=== PATIENT | female | born 1945 | race Caucasian/White ===

== ENCOUNTER 2018-04-01 07:52 | Day surgery (SDC) | payer MEDICARE, OTHER ==
[~2018-04-01 07:52] MED LIST: Cefuroxime 10 MG/ML SYRINGE EYELF SCH; Lidocaine 1% PF 2 ML SDV INJECT SCH; Pilocarpine 4% Ophth Soln 15 ML Bot EYELF SCH
[2018-04-01] MEDS: Ofloxacin 0.3% Ophth Soln 5 ML Bottle EYELF SCH ×3 (09:03→11:06)
[2018-04-01] MEDS: Brimonidine 0.2% Ophth Soln 5 ML Bottle EYELF SCH ×3 (09:11→11:06)
--- NOTE | 2018-04-01 09:15 | PCM.PREANE ---
Preanesthetic Assessment - Anesthesia/Transfusion/Family Hx Anesthesia History: Prior Anesthesia Without Reaction Family History of Anesthesia Reaction: No Transfusion History: No Prior Transfusion(s) - Review of Systems General: No Symptoms Pulmonary: No Symptoms, Cough (smoler) Cardiovascular: No Symptoms Gastrointestinal: No Symptoms Neurological: No Symptoms Other: Reports: None - Physical Assessment NPO Status Date: 03/31/18 NPO Status Time: 22:00 Pulse: 97 O2 Sat by Pulse Oximetry: 94 Respiratory Rate: 16 Blood Pressure: 131/64 Temperature: 36.7 C Vital Signs: Last Vital Signs Temp 36.7 C 04/01/18 08:50 Pulse 97 04/01/18 08:50 Resp 16 04/01/18 08:50 BP 131/64 04/01/18 08:50 Pulse Ox 94 L 04/01/18 08:50 Height: 1.65 m Weight: 50.802 kg ASA Class: 2 Mental Status: Alert & Oriented x3 Airway Class: Mallampati = 2 Dentition: Reports: Missing Tooth/Teeth, Caries Thyro-Mental Finger Breadths: 3 Mouth Opening Finger Breadths: 2 ROM/Head Extension: Full Lungs: Decreased Breath Sounds, Wheezing Cardiovascular: Regular Rate, Regular Rhythm - Allergies Allergies/Adverse Reactions: Allergies Allergy/AdvReac Type Severity Reaction Status Date / Time Sulfa (Sulfonamide Allergy Cannot Verified 03/31/18 10:23 Antibiotics) Remember Tetanus Vaccines and Toxoid Allergy Cannot Verified 03/31/18 10:23 Remember - Blood Blood Available: No Product(s) Available: None - Anesthesia Plan Pre-Op Medication Ordered: None - Acknowledgements Anesthesia Type Planned: MAC Pt an Appropriate Candidate for the Planned Anesthesia: Yes Alternatives and Risks of Anesthesia Discussed w Pt/Guardian: Yes Pt/Guardian Understands and Agrees with Anesthesia Plan: Yes PreAnesthesia Questionnaire - HOME MEDS Home Medications: Home Meds Aspirin [Adult Aspirin] 81 mg PO DAILY 03/31/18 [History] Lifitegrast [Xiidra] 1 drop EYEBOTH ASDIRECTED 03/31/18 [History] Olmesartan [Benicar] 20 mg PO DAILY 03/31/18 [History] Sertraline [Zoloft] 100 mg PO DAILY 03/31/18 [History] amLODIPine Besylate [Norvasc] 2.5 mg PO DAILY 03/31/18 [History] buPROPion [Wellbutrin SR] 150 mg PO DAILY 03/31/18 [History] hydrOXYzine HCl [hydrOXYzine] 25 mg PO DAILY 03/31/18 [History] - CURRENT (IN HOUSE) MEDS Current Meds: Current Medications Brimonidine Tartrate (Alphagan 0.2% Ophth Soln) 0 ml EYELF ASDIRECTED TAE Stop: 04/01/18 18:00 Cefuroxime Sodium (Zinacef) 0 mg EYELF ASDIRECTED TAE Stop: 04/01/18 18:00 Lidocaine HCl (Xylocaine-Mpf 1%) 0 ml INJECT ASDIRECTED TAE Stop: 04/01/18 18:00 Ofloxacin (Ocuflox 0.3% Ophth Soln) 0 ml EYELF ASDIRECTED TAE Stop: 04/01/18 18:00 Last Admin: 04/01/18 09:03 Dose: 1 drop Phenylephrine HCl (Alexx-Synephrine 2.5% Ophth Soln) 0 ml EYELF ASDIRECTED TAE Stop: 04/01/18 18:00 Pilocarpine HCl (Pilocar 4% Ophth Soln) 0 ml EYELF ASDIRECTED TAE Stop: 04/01/18 18:00 Tetracaine HCl (Tetracaine 0.5% Steri-Unit Cheryle) 0 ml EYELF ASDIRECTED TAE Stop: 04/01/18 18:00 Tropicamide (Mydriacyl 1% Ophth Soln) 0 ml EYELF ASDIRECTED TAE Stop: 04/01/18 18:00
[2018-04-01] MEDS: Phenylephrine 2.5% Ophth Soln 2 ML Bot EYELF SCH ×8 (09:20→10:40)
[2018-04-01] MEDS: Tropicamide 1% Ophth Soln 15 ML Bottle EYELF SCH ×4 (09:28→10:28)
[2018-04-01] MEDS: Tetracaine HCl/PF 0.5% 4 ML Bottle EYELF SCH ×2 (10:34→10:55)
--- NOTE | 2018-04-01 11:09 | PCM48HPAN ---
Post Anesthesia Note - EVALUATION WITHIN 48HRS OF ANESTHETIC Vital Signs in Normal Range: Yes Patient Participated in Evaluation: Yes Respiratory Function Stable: Yes Airway Patent: Yes Cardiovascular Function Stable: Yes Hydration Status Stable: Yes Pain Control Satisfactory: Yes Nausea and Vomiting Control Satisfactory: Yes Mental Status Recovered: Yes Pulse Rate: 92 SaO2: 99 Resp Rate: 16 Temperature: 36.7 C Blood Pressure: 125/69
== END 2018-04-01 11:16 | disposition home or self-care (01) ==
LOC: JD.SDS 07:52
PROVIDERS: ATTEND Ophthalmology
DX: H25.813 Combined forms of age-related cataract, bilateral (principal); H16.103 Unspecified superficial keratitis, bilateral; H16.223 Keratoconjunctivitis sicca, not specified as Sjogren's, bilateral; H02.834 Dermatochalasis of left upper eyelid; H02.831 Dermatochalasis of right upper eyelid; I10 Essential (primary) hypertension; F32.9 Major depressive disorder, single episode, unspecified; F41.9 Anxiety disorder, unspecified; F17.200 Nicotine dependence, unspecified, uncomplicated; Z79.82 Long term (current) use of aspirin; Z79.899 Other long term (current) drug therapy; Z88.2 Allergy status to sulfonamides; Z88.7 Allergy status to serum and vaccine
CPT/HCPCS: 66984; C1780; J0697; A9270-GY; J2001

== ENCOUNTER 2018-05-04 08:10 | Day surgery (SDC) | payer MEDICARE, OTHER ==
[~2018-05-04 08:10] MED LIST changes: -Cefuroxime 10 MG/ML SYRINGE EYELF SCH; -Pilocarpine 4% Ophth Soln 15 ML Bot EYELF SCH
[2018-05-04] MEDS: Ofloxacin 0.3% Ophth Soln 5 ML Bottle EYERT SCH ×4 (09:08→11:00)
[2018-05-04] MEDS: Brimonidine 0.2% Ophth Soln 5 ML Bottle EYERT SCH ×4 (09:14→11:00)
--- NOTE | 2018-05-04 09:14 | PCM.PREANE ---
Preanesthetic Assessment - Anesthesia/Transfusion/Family Hx Anesthesia History: Prior Anesthesia Without Reaction Family History of Anesthesia Reaction: No Transfusion History: No Prior Transfusion(s) - Review of Systems General: No Symptoms Pulmonary: No Symptoms Cardiovascular: Dyspnea on Exertion Gastrointestinal: No Symptoms Neurological: No Symptoms Other: Reports: None - Physical Assessment NPO Status Date: 05/03/18 NPO Status Time: 22:00 Pulse: 84 O2 Sat by Pulse Oximetry: 91 Respiratory Rate: 16 Blood Pressure: 137/69 Temperature: 36.7 C Vital Signs: Last Vital Signs Temp 36.7 C 05/04/18 08:45 Pulse 84 05/04/18 08:45 Resp 16 05/04/18 08:45 BP 137/69 05/04/18 08:45 Pulse Ox 91 L 05/04/18 08:45 Height: 1.63 m Weight: 50.802 kg ASA Class: 2 Mental Status: Alert & Oriented x3 Airway Class: Mallampati = 2 Dentition: Reports: Missing Tooth/Teeth Thyro-Mental Finger Breadths: 3 Mouth Opening Finger Breadths: 2 ROM/Head Extension: Full Lungs: Clear to Auscultation, Normal Respiratory Effort Cardiovascular: Regular Rate, Regular Rhythm - Allergies Allergies/Adverse Reactions: Allergies Allergy/AdvReac Type Severity Reaction Status Date / Time Sulfa (Sulfonamide Allergy Cannot Verified 05/03/18 13:00 Antibiotics) Remember Tetanus Vaccines and Toxoid Allergy Cannot Verified 05/03/18 13:00 Remember - Blood Blood Available: No Product(s) Available: None - Anesthesia Plan Pre-Op Medication Ordered: None - Acknowledgements Anesthesia Type Planned: MAC Pt an Appropriate Candidate for the Planned Anesthesia: Yes Alternatives and Risks of Anesthesia Discussed w Pt/Guardian: Yes Pt/Guardian Understands and Agrees with Anesthesia Plan: Yes PreAnesthesia Questionnaire - HOME MEDS Home Medications: Home Meds Aspirin [Adult Aspirin] 81 mg PO DAILY 03/31/18 [History] Lifitegrast [Xiidra] 1 drop EYEBOTH ASDIRECTED 03/31/18 [History] Olmesartan [Benicar] 20 mg PO DAILY 03/31/18 [History] Sertraline [Zoloft] 100 mg PO DAILY 03/31/18 [History] amLODIPine Besylate [Norvasc] 2.5 mg PO DAILY 03/31/18 [History] buPROPion [Wellbutrin SR] 150 mg PO DAILY 03/31/18 [History] hydrOXYzine HCl [hydrOXYzine] 25 mg PO DAILY 03/31/18 [History] - CURRENT (IN HOUSE) MEDS Current Meds: Current Medications Brimonidine Tartrate (Alphagan 0.2% Ophth Soln) 0 ml EYERT ASDIRECTED TAE Stop: 05/04/18 18:00 Cefuroxime Sodium (Zinacef) 0 mg EYERT ASDIRECTED TAE Stop: 05/04/18 18:00 Lidocaine HCl (Xylocaine-Mpf 1%) 0 ml INJECT ASDIRECTED TAE Stop: 05/04/18 18:00 Ofloxacin (Ocuflox 0.3% Ophth Soln) 0 ml EYERT ASDIRECTED TAE Stop: 05/04/18 18:00 Phenylephrine HCl (Alexx-Synephrine 2.5% Ophth Soln) 0 ml EYERT ASDIRECTED TAE Stop: 05/04/18 18:00 Pilocarpine HCl (Pilocar 4% Ophth Soln) 0 ml EYERT ASDIRECTED TAE Stop: 05/04/18 18:00 Tetracaine HCl (Tetracaine 0.5% Steri-Unit Cheryle) 0 ml EYERT ASDIRECTED TAE Stop: 05/04/18 18:00 Tropicamide (Mydriacyl 1% Ophth Soln) 0 ml EYERT ASDIRECTED TAE Stop: 05/04/18 18:00
[2018-05-04] MEDS: Phenylephrine 2.5% Ophth Soln 2 ML Bot EYERT SCH ×5 (09:20→10:21)
[2018-05-04] MEDS: Tropicamide 1% Ophth Soln 15 ML Bottle EYERT SCH ×4 (09:25→10:06)
[2018-05-04] MEDS ORDERED: Midazolam 1 MG/ML 2 ML SDV ONE (09:36)
[2018-05-04] MEDS ORDERED: Propofol 200 MG/20 ML SDV ONE (09:36)
[2018-05-04] MEDS ORDERED: Lidocaine 1%/Sod Bicarbonate in NS 8.4% 1 ML Syringe IDERM PRN (10:00)
[2018-05-04] MEDS ORDERED: Sodium Chloride 0.9% 10 ML Syringe FLUSH PRN (10:00)
[2018-05-04] MEDS ORDERED: Lactated Ringers 1,000 ML IV SCH (10:00)
[2018-05-04] MEDS: Tetracaine HCl/PF 0.5% 4 ML Bottle EYERT SCH ×2 (10:09→10:29)
[2018-05-04] MEDS: Cefuroxime 10 MG/ML SYRINGE EYERT SCH ×2 (10:42→10:55)
[2018-05-04] MEDS: Pilocarpine 4% Ophth Soln 15 ML Bot EYERT SCH ×2 (10:43→11:00)
--- NOTE | 2018-05-04 11:06 | PCM48HPAN ---
Post Anesthesia Note - EVALUATION WITHIN 48HRS OF ANESTHETIC Vital Signs in Normal Range: Yes Patient Participated in Evaluation: Yes Respiratory Function Stable: Yes Airway Patent: Yes Cardiovascular Function Stable: Yes Hydration Status Stable: Yes Pain Control Satisfactory: Yes Nausea and Vomiting Control Satisfactory: Yes Mental Status Recovered: Yes Pulse Rate: 84 Resp Rate: 16 Temperature: 36.7 C Blood Pressure: 137/69 - COMMENTS/OBSERVATIONS Free Text/Narrative:: no anesthesia complications noted
== END 2018-05-04 11:14 | disposition home or self-care (01) ==
LOC: JD.SDS 08:10
PROVIDERS: ATTEND Ophthalmology
DX: H25.811 Combined forms of age-related cataract, right eye (principal); H02.831 Dermatochalasis of right upper eyelid; H02.834 Dermatochalasis of left upper eyelid; F41.9 Anxiety disorder, unspecified; F32.9 Major depressive disorder, single episode, unspecified; I10 Essential (primary) hypertension; Z79.82 Long term (current) use of aspirin; Z79.899 Other long term (current) drug therapy; Z88.2 Allergy status to sulfonamides; Z88.7 Allergy status to serum and vaccine; Z98.42 Cataract extraction status, left eye; Z96.1 Presence of intraocular lens
CPT/HCPCS: 66984; C1780; J0697; J2250; J2704; J7120; A9270-GY; J2001

== ENCOUNTER 2022-12-23 12:14 | Observation (INO) | payer MEDICARE, BC ==
[2022-12-23] MEDS ORDERED: Sodium Chloride 0.9% 1,000 ML IV ONE ×2 (12:35→14:35)
[2022-12-23] MEDS ORDERED: oxyCODONE 5 MG Tab PO PRN (16:28)
[2022-12-23] MEDS ORDERED: Temazepam 7.5 MG Cap PO PRN (16:28)
[2022-12-23] MEDS ORDERED: Acetaminophen 325 MG Tab PO PRN (16:28)
[2022-12-23] MEDS ORDERED: Albuterol/Ipratropium 3.0-0.5 MG/3 ML Neb Soln NEB PRN (16:28)
[2022-12-23] MEDS: Heparin Sodium 5,000 Units/ML Vial SUBCUT SCH (17:54)
[2022-12-23] MEDS: Sodium Chloride 0.9% 1,000 ML IV SCH (17:55)
[2022-12-24] MEDS: Heparin Sodium 5,000 Units/ML Vial SUBCUT SCH ×2 (00:41→08:27)
[2022-12-24] MEDS: Sodium Chloride 0.9% 1,000 ML IV SCH (01:42)
[2022-12-24] MEDS ORDERED: Sodium Polystyrene Sulfonate 15 GM/60 ML Susp 60 ML Bot PO ONE (06:19)
[2022-12-24] MEDS ORDERED: amLODIPine 2.5 MG Tab PO SCH (09:00)
[2022-12-24] MEDS ORDERED: Losartan 50 MG Tab PO SCH (09:00)
[2022-12-24] MEDS ORDERED: Nicotine 14 MG/24 Hr Patch TRDERM SCH (09:00)
[2022-12-24] MEDS ORDERED: Sertraline 50 MG Tab PO SCH (09:00)
[2022-12-24] MEDS ORDERED: hydrOXYzine HCl 25 MG Tab PO SCH (09:00)
[2022-12-24] MEDS ORDERED: Aspirin 81 MG Tab.EC PO SCH (09:00)
== END 2022-12-24 14:05 | disposition home or self-care (01) ==
LOC: JD.ED 12:14 → JD.MS 16:24
PROVIDERS: ADMIT Internal Medicine; ATTEND Internal Medicine
DX: E87.5 Hyperkalemia (principal); E86.0 Dehydration; N25.89 Other disorders resulting from impaired renal tubular function; N28.9 Disorder of kidney and ureter, unspecified; J44.9 Chronic obstructive pulmonary disease, unspecified; I12.9 Hypertensive chronic kidney disease with stage 1 through stage 4 chronic kidney disease, or unspecified chronic kidney disease; N18.4 Chronic kidney disease, stage 4 (severe); R19.7 Diarrhea, unspecified; F41.9 Anxiety disorder, unspecified; F32.A Depression, unspecified; F17.210 Nicotine dependence, cigarettes, uncomplicated; Z88.2 Allergy status to sulfonamides; Z88.7 Allergy status to serum and vaccine; Z79.82 Long term (current) use of aspirin; Z79.899 Other long term (current) drug therapy
CPT/HCPCS: 36415; 80053; 81001; 84132; 85025; 93005; 94761; A9270; J1644; J7030

== ENCOUNTER 2024-09-09 11:49 | Inpatient (IN) | payer BC, MEDICARE ==
[2024-09-09 12:53] LABS: BASOPHILS PERCENT AUTO 0.2 % (0.0-1.0); EOSINOPHILS PERCENT AUTO 0.1 % (0.0-6.0); HEMATOCRIT 44.2 % (37.0-47.0); HEMOGLOBIN 14.7 gm/dl (12.0-16.0); IMMATURE GRAN ABSOLUTE AUTO 0.08 K/mm3 (0.00-0.05); IMMATURE GRAN PERCENT AUTO 0.7 % (0.0-0.4); LYMPHOCYTES ABSOLUTE AUTO 0.9 K/mm3 (1.0-4.8); LYMPHOCYTES PERCENT AUTO 8.3 % (24.0-44.0); MEAN CORPUSCULAR HEMOGLOBIN 30.4 pg (28.0-32.0); MEAN CORPUSCULAR HGB CONC 33.3 g/dl (32.0-36.0); MEAN CORPUSCULAR VOLUME 91.3 fl (83.0-99.0); MEAN PLATELET VOLUME 10.4 fl (9.4-12.3); MONOCYTES ABSOLUTE AUTO 0.9 K/mm3 (0.0-0.8); MONOCYTES PERCENT AUTO 8.3 % (0.0-8.0); NEUTROPHILS ABSOLUTE AUTO 9.2 K/mm3 (1.8-7.7); NEUTROPHILS PERCENT AUTO 82.4 % (41.0-71.0); PLATELET COUNT,PLT 144 K/mm3 (150-400); RED BLOOD CELL COUNT 4.84 M/mm3 (4.10-5.30); WHITE BLOOD CELL COUNT,WBC 11.11 K/mm3 (3.9-11.3)
[2024-09-09] MEDS: Albuterol/Ipratropium 3.0-0.5 MG/3 ML Neb Soln NEB ONE ×2 (12:53→13:59)
[2024-09-09] MEDS: Ondansetron 4 MG/2 ML SDV IVPUSH ONE (12:56)
[2024-09-09] MEDS: methylPREDNISolone Sodium Succinate 125 MG/2 ML SDV IVPUSH ONE (12:56)
[2024-09-09] MEDS: Sodium Chloride 0.9% 10 ML Syringe FLUSH PRN (12:56)
[2024-09-09] MEDS: Sodium Chloride 0.9% 1,000 ML IV SCH ×2 (12:56→18:38)
[2024-09-09 13:22] LABS: A/G RATIO 0.6 (1-2); ALBUMIN 3.1 g/dl (3.4-5.0); ANION GAP 12.2 (5-15); BILIRUBIN TOTAL 0.5 mg/dL (0.2-1.0); BUN/CREATININE RATIO 26.9 (14-18); CALCIUM 8.9 mg/dL (8.5-10.1); CREATININE 1.6 mg/dL (0.55-1.02); EST CRCL DRUG DOSING (CG) 17.44 mL/min; MAGNESIUM 1.3 mg/dL (1.8-2.4); POTASSIUM,K 5.2 mEq/L (3.5-5.1); PROTEIN TOTAL,TP 8.3 g/dl (6.4-8.2)
[2024-09-09] MEDS ORDERED: Oseltamivir 75 MG Cap PO ONE (14:10)
[2024-09-09] MEDS: Oseltamivir 30 MG Cap PO ONE (14:33)
[2024-09-09] MEDS: Albuterol/Ipratropium 3.0-0.5 MG/3 ML Neb Soln NEB SCH (16:51)
[2024-09-09] MEDS ORDERED: Acetaminophen 325 MG Tab PO PRN (18:06)
[2024-09-09] MEDS ORDERED: Melatonin 3 MG Tab PO PRN (18:06)
[2024-09-09] MEDS: Magnesium Sulfate/Water Premix 4 GM in Premix Bag 1 BAG IV ONE (18:38)
[2024-09-09] MEDS: cefTRIAXone 1 GM in Water For Injection, Sterile 10 ML IV SCH (18:38)
[2024-09-09] MEDS: Heparin Sodium 5,000 Units/ML Vial SUBCUT SCH (21:27)
[2024-09-10] MEDS: methylPREDNISolone Sodium Succinate 40 MG/1 ML SDV IVPUSH SCH (04:48)
[2024-09-10 05:34] LABS: A/G RATIO 0.5 (1-2); ALBUMIN 2.6 g/dl (3.4-5.0); ANION GAP 13.7 (5-15); BILIRUBIN TOTAL 0.2 mg/dL (0.2-1.0); BUN/CREATININE RATIO 34.2 (14-18); CALCIUM 8.4 mg/dL (8.5-10.1); CREATININE 1.2 mg/dL (0.55-1.02); EST CRCL DRUG DOSING (CG) 23.41 mL/min; MAGNESIUM 3.1 mg/dL (1.8-2.4); POTASSIUM,K 4.7 mEq/L (3.5-5.1); PROTEIN TOTAL,TP 7.4 g/dl (6.4-8.2)
[2024-09-10 05:47] LABS: BASOPHILS PERCENT AUTO 0.2 % (0.0-1.0); EOSINOPHILS PERCENT AUTO 0.1 % (0.0-6.0); HEMATOCRIT 38.8 % (37.0-47.0); LYMPHOCYTES ABSOLUTE AUTO 0.7 K/mm3 (1.0-4.8); MEAN CORPUSCULAR HEMOGLOBIN 30.8 pg (28.0-32.0); MEAN CORPUSCULAR HGB CONC 32.7 g/dl (32.0-36.0); MEAN CORPUSCULAR VOLUME 94.2 fl (83.0-99.0); MEAN PLATELET VOLUME 11.1 fl (9.4-12.3); MONOCYTES ABSOLUTE AUTO 0.6 K/mm3 (0.0-0.8); MONOCYTES PERCENT AUTO 5.9 % (0.0-8.0); NEUTROPHILS ABSOLUTE AUTO 8.8 K/mm3 (1.8-7.7); NEUTROPHILS PERCENT AUTO 85.8 % (41.0-71.0); PLATELET COUNT,PLT 143 K/mm3 (150-400); RED BLOOD CELL COUNT 4.12 M/mm3 (4.10-5.30); WHITE BLOOD CELL COUNT,WBC 10.19 K/mm3 (3.9-11.3)
[2024-09-10 05:52] LABS: HEMOGLOBIN 12.7 gm/dl (12.0-16.0)
[2024-09-10] MEDS: Rosuvastatin 10 MG Tab PO SCH (08:53)
[2024-09-10] MEDS: Sertraline 50 MG Tab PO SCH (08:53)
[2024-09-10] MEDS: Oseltamivir 30 MG Cap PO SCH (14:56)
[2024-09-10] MEDS: cefTRIAXone 1 GM Vial IV SCH (17:17)
[2024-09-10] MEDS: hydrOXYzine HCl 25 MG Tab PO SCH (22:03)
[2024-09-11 05:32] LABS: BASOPHILS PERCENT AUTO 0.1 % (0.0-1.0); HEMATOCRIT 38.3 % (37.0-47.0); HEMOGLOBIN 12.2 gm/dl (12.0-16.0); IMMATURE GRAN ABSOLUTE AUTO 0.06 K/mm3 (0.00-0.05); IMMATURE GRAN PERCENT AUTO 0.5 % (0.0-0.4); LYMPHOCYTES ABSOLUTE AUTO 0.8 K/mm3 (1.0-4.8); LYMPHOCYTES PERCENT AUTO 6.9 % (24.0-44.0); MEAN CORPUSCULAR HEMOGLOBIN 30.7 pg (28.0-32.0); MEAN CORPUSCULAR HGB CONC 31.9 g/dl (32.0-36.0); MEAN CORPUSCULAR VOLUME 96.5 fl (83.0-99.0); MONOCYTES ABSOLUTE AUTO 0.6 K/mm3 (0.0-0.8); MONOCYTES PERCENT AUTO 4.8 % (0.0-8.0); NEUTROPHILS ABSOLUTE AUTO 10.4 K/mm3 (1.8-7.7); NEUTROPHILS PERCENT AUTO 87.7 % (41.0-71.0); PLATELET COUNT,PLT 169 K/mm3 (150-400); RED BLOOD CELL COUNT 3.97 M/mm3 (4.10-5.30); WHITE BLOOD CELL COUNT,WBC 11.82 K/mm3 (3.9-11.3)
[2024-09-11 05:56] LABS: A/G RATIO 0.5 (1-2); ALBUMIN 2.5 g/dl (3.4-5.0); ANION GAP 10.3 (5-15); BILIRUBIN TOTAL 0.1 mg/dL (0.2-1.0); BUN/CREATININE RATIO 36.4 (14-18); CALCIUM 8.6 mg/dL (8.5-10.1); CREATININE 1.1 mg/dL (0.55-1.02); EST CRCL DRUG DOSING (CG) 25.06 mL/min; POTASSIUM,K 5.3 mEq/L (3.5-5.1); PROTEIN TOTAL,TP 7.1 g/dl (6.4-8.2)
[2024-09-11] MEDS: amLODIPine 5 MG Tab PO SCH (08:01)
[2024-09-11] MEDS: Levofloxacin 750 MG Tab PO ONE (11:59)
[2024-09-11] MEDS: Albuterol 6.7 GM Inhaler INH PRN (12:02)
== END 2024-09-11 12:19 | disposition home or self-care (01) | DRG 193 ==
LOC: JD.ED 11:49 → JD.MS 14:24
PROVIDERS: ADMIT Family Medicine; ATTEND Family Medicine
DX: J10.1 Influenza due to other identified influenza virus with other respiratory manifestations (principal); J96.01 Acute respiratory failure with hypoxia; J44.1 Chronic obstructive pulmonary disease with (acute) exacerbation; E87.1 Hypo-osmolality and hyponatremia; N17.9 Acute kidney failure, unspecified; F17.210 Nicotine dependence, cigarettes, uncomplicated; H54.7 Unspecified visual loss; M81.0 Age-related osteoporosis without current pathological fracture; F15.90 Other stimulant use, unspecified, uncomplicated; E87.8 Other disorders of electrolyte and fluid balance, not elsewhere classified; R09.02 Hypoxemia; E87.5 Hyperkalemia; E83.42 Hypomagnesemia; E86.0 Dehydration; N18.31 Chronic kidney disease, stage 3a; F41.8 Other specified anxiety disorders; Z88.1 Allergy status to other antibiotic agents; Z91.040 Latex allergy status; I12.9 Hypertensive chronic kidney disease with stage 1 through stage 4 chronic kidney disease, or unspecified chronic kidney disease; N18.9 Chronic kidney disease, unspecified; Z90.89 Acquired absence of other organs; Z88.7 Allergy status to serum and vaccine; Z79.02 Long term (current) use of antithrombotics/antiplatelets; Z88.2 Allergy status to sulfonamides; Z79.51 Long term (current) use of inhaled steroids; Z91.018 Allergy to other foods; Z79.899 Other long term (current) drug therapy
CPT/HCPCS: 36415; 71045; 71045-26; 80053; 83735; 83880; 84484; 85025; 87428-QW; 93005; 94640; 94761; 96361; 96374; 96375; 99285-25; A9270-GY; J0696; J1644; J2405; J2919; J3475; J7030; J7620-GY